=== PATIENT | female | born 1970 ===

== ENCOUNTER 2016-12-28 11:57 | Emergency (ER) | payer SELFPAY ==
[2016-12-28 12:08] VITALS: BP 123/76; PULSE 72; RESP 18; TEMP 98.2; O2SAT 100
--- NOTE | 2016-12-28 13:02 | ED PDOC ---
HPI: Abdomen Time Seen by Provider: 12/28/16 13:00 Chief Complaint (Nursing): Abdominal Pain Chief Complaint (Provider): Vaginal spotting, very mild lower abdominal pain History Per: Patient History/Exam Limitations: no limitations Onset/Duration Of Symptoms: Mins Outside of [place] travel?: No Current Symptoms Are (Timing): Better Pain Scale Rating Of: 0 Location Of Pain/Discomfort: Suprapubic Quality Of Discomfort: Burning Associated Symptoms: Nausea. denies: Fever, Chills, Vomiting, Diarrhea, Loss Of Appetite, Back Pain, Chest Pain, Urinary Symptoms Exacerbating Factors: None Alleviating Factors: None Last Bowel Movement: Yesterday Additional Complaint(s): CC: vaginal spotting HPI: 46 y/o woman w/ no PMH presents to eD w/ vaginal spotting. The patient reports that she noticed spotting while wiping after using the bathroom this morning at 11:00. The patient describes pink colored spotting, with no clots, no other discharge, and very mild burning intermittent lower abdominal pain. The patient reports associated nasuea but denies episodes of vomit. The patient is seen at the [facility] for care and was seen yesterday, has thus far been normal. The patient reports taking vitamins and no other medications. The patietn denies headaches, dizziness, chest pain, SOB, diarrhea, dysuria, and fevers. PMD: [facility] ([place]) PMH: none PSH: none SOC: denies smoking, alcohol, and drugs ROS: negative for 12 points assessed unless otherwise reported in HPI Abnormal Vaginal Bleeding: Yes Last Menstral Period: 09/22/2016 : 5 Para: 3 Miscarriage: 1 Past Medical History Vital Signs: Last Vital Signs Temp 98.2 F 12/28/16 12:05 Pulse 72 12/28/16 12:05 Resp 18 12/28/16 12:05 BP 123/76 12/28/16 12:05 Pulse Ox 100 12/28/16 16:45 - Surgical History Surgical History: No Surg Hx - Family History Family History: States: Unknown Family Hx - Allergies Allergies/Adverse Reactions: Allergies Allergy/AdvReac Type Severity Reaction Status Date / Time No Known Allergies Allergy Verified 12/28/16 12:04 Review of Systems ROS Statement: Except As Marked, All Systems Reviewed And Found Negative Constitutional: Negative for: Fever, Chills, Sweats Eyes: Negative for: Vision Change Cardiovascular: Negative for: Chest Pain, Palpitations, Light Headedness Respiratory: Negative for: Cough, Shortness of Breath, Hemoptysis, SOB with Exertion, Wheezing Gastrointestinal: Positive for: Nausea, Abdominal Pain. Negative for: Vomiting , Diarrhea, Melena, Hematochezia Genitourinary Female: Negative for: Dysuria, Hematuria Neurological: Negative for: Weakness, Headache, Dizziness Physical Exam - Reviewed Nursing Documentation Reviewed: Yes Vital Signs Reviewed: Yes - Physical Exam Appears: Positive for: No Acute Distress Head Exam: Positive for: ATRAUMATIC, NORMOCEPHALIC Skin: Positive for: Normal Color, Warm, Dry Eye Exam: Positive for: Normal appearance, EOMI, PERRL Neck: Positive for: Painless ROM, Supple Cardiovascular/Chest: Positive for: Regular Rate, Rhythm, Chest Non Tender. Negative for: Bradycardia, Tachycardia Respiratory: Positive for: Normal Breath Sounds. Negative for: Decreased Breath Sounds, Accessory Muscle Use, Crackles, Rales, Rhonchi, Stridor, Wheezing , Respiratory Distress Pulses-Carotid (L): 2+ Pulses-Carotid (R): 2+ Pulses-Dorsalis Pedis (L): 2+ Pulses-Dorsalis Pedis (R): 2+ Pulses-Post. Tibialis (L): 2+ Pulses-Post. Tibialis (R): 2+ Pulses-Radial (L): 2+ Pulses-Radial (R): 2+ Pelvic Exam: Positive for: External Exam Normal, No Cerv. Motion Tender, No Masses, Blood, Lesions (patient reports no abnormal Pap in past), Other ( child care group leader present during exam). Negative for: Active Bleeding, Cervicitis, Discharge, Mass, Tender W/Cervical Motion, Tender Adnexa, Tender Uterus Back: Positive for: Normal Inspection Extremity: Negative for: Tenderness, Pedal Edema, Calf Tenderness Neurologic/Psych: Positive for: Alert, Oriented. Negative for: Motor/Sensory Deficits - Laboratory Results Result Diagrams: 12/28/16 13:00 12/28/16 13:00 - ECG O2 Sat by Pulse Oximetry: 100 Medical Decision Making Medical Decision Makin46 y/o woman w/ no PMH presents to eD w/ vaginal spotting CBC w/ diff: slight anemia Hb 11.6 CMP: mild elevated ALT 53, BP 123/76 mm Hg [facility] obstetric U/S: single viable IUP @ 14.6 weeks re-evaluated patient feels better Dispo: discharge to home, counseled to follow up w/ clinic and scheduled echo tomorrow Disposition - Clinical Impression Clinical Impression: Threatened miscarriage - Patient ED Disposition Is Patient to be Admitted: No Discussed With : Osman Canales Counseled Patient/Family Regarding: Studies Performed, Diagnosis, Need For Followup - Disposition Referrals: [facility] [Outside] Disposition: Routine/Home Disposition Time: 17:38 Condition: FAIR Instructions: Threatened Miscarriage (ED) Print Language: AZERI - POA Present On Arrival: None
[2016-12-28 13:47] LABS: BASO % 0.6 % (0.0-2.0); EOS % 0.4 % (0.0-4.0); HEMOGLOBIN 11.6 g/dL (12.0-16.0); LYMPH # 1.9 K/uL (1.0-4.3); LYMPH % 24.6 % (20.0-40.0); MEAN CELL VOLUME 92.1 fl (81.0-99.0); MEAN CORPUSCULAR HEMOGLOBIN 31.2 pg (27.0-31.0); MEAN CORPUSCULAR HGB CONC 33.9 g/dL (33.0-37.0); MEAN PLATELET VOLUME 10.1 fl (7.2-11.7); MONO # 0.5 K/uL (0.0-0.8); NEUT # 5.3 K/uL (1.8-7.0); NEUT % 67.4 % (50.0-75.0); RBC 3.71 Mil/uL (3.80-5.20); RED CELL DISTRIBUTION WIDTH 14.3 % (11.5-14.5); WHITE BLOOD COUNT 7.8 K/uL (4.8-10.8)
[2016-12-28 13:53] LABS: ALB/GLOB RATIO 1.1 (1.0-2.1); ALBUMIN 3.9 g/dL (3.5-5.0); ALT/SGPT 53 U/L (9-52); AST/SGOT 33 U/L (14-36); BLOOD UREA NITROGEN 12 mg/dl (7-17); CALCIUM 9.6 mg/dL (8.4-10.2); GFR AFRICAN-AMERICAN > 60; GFR NON-AFRICAN AMERICAN > 60
--- NOTE | 2016-12-28 16:19 | US ---
PROCEDURE: OB Pelvic Ultrasound HISTORY: r/o ectopic COMPARISON: None available. FINDINGS: UTERUS: Gestational sac: There is a single live intrauterine fetus in variable presentation. . Heart rate: 147 bpm. BPD: 2.74 cm corresponding to 14 weeks and 6 days of gestational age. HC: 10.08 cm corresponding to 14 weeks and 5 days of gestational age. AC: 8.50 cm corresponding to 14 weeks and 6 days of gestational age. FL: 1.58 cm corresponding to 14 weeks and 5 days of gestational age. age (Ultrasound estimated): 14 weeks and 6 days. Cande-gestational hemorrhage: None. Date of delivery (Ultrasound estimated) : 06/22/2017 Placenta is anterior. CERVIX: Long and closed. No cervical abnormality seen. RIGHT OVARY: Not visualized. LEFT OVARY: Not visualized. FREE FLUID: None. OTHER FINDINGS: None. IMPRESSION: Single live intrauterine fetus in variable presentation with mean gestational age of 14 weeks and 6 days. Estimated date of delivery by ultrasound is 06/22/2017. There is a discrepancy with the clinical dates by 20 days. Clinical correlation and follow-up is advised.
== END 2016-12-28 17:35 | disposition home or self-care (01) ==
LOC: H.ER 11:57
DX: O20.0 Threatened abortion (principal); Z3A.14 14 weeks gestation of pregnancy

== ENCOUNTER 2017-06-18 05:23 | Inpatient (IN) | payer MEDICAID, SELFPAY ==
[2017-06-18 05:56] VITALS: BMI 30.5
[2017-06-18 06:39] LABS: BASO % 0.2 % (0.0-2.0); EOS % 0.2 % (0.0-4.0); HEMOGLOBIN 11.3 g/dL (12.0-16.0); LYMPH # 2.7 K/uL (1.0-4.3); LYMPH % 34.9 % (20.0-40.0); MEAN CELL VOLUME 89.4 fl (81.0-99.0); MEAN CORPUSCULAR HGB CONC 34.6 g/dL (33.0-37.0); MEAN PLATELET VOLUME 11.2 fl (7.2-11.7); MONO # 0.6 K/uL (0.0-0.8); MONO % 7.2 % (0.0-10.0); NEUT # 4.4 K/uL (1.8-7.0); NEUT % 57.5 % (50.0-75.0); NRBC % 0.1 % (0.0-0.0); RBC 3.64 Mil/uL (3.80-5.20); RED CELL DISTRIBUTION WIDTH 14.9 % (11.5-14.5); WHITE BLOOD COUNT 7.7 K/uL (4.8-10.8)
[2017-06-18] MEDS: Oxytocin 30 UNITS in Sodium Chloride 0.9% 500 ML IV SCH ×4 (06:40→09:24)
[2017-06-18] MEDS ORDERED: Lidocaine 1% Inj (20ml) ONE (06:53)
--- NOTE | 2017-06-18 07:28 | OBDS ---
DELIVERY PERSONNEL Delivery Doctor: Cedric Amador MD Resident: Dr. Michaud PGY-1 MATERNAL INFORMATION Provider Comments: Pt progressed to complete and pushed to deliver a viable female through clear flu id at 06:43 am w/ a tight nuchal cord. Apgars 9 and 9. Wt 3480 gms. 7#10.8. Cord clamped and cut. placed on mother's abdomen. Cord blod collected. Placenta delivered spontaneously intact w/ a 3vc at 06:47 am. Bimanual massage performed for bleeding. 0-v stitches placed to reinforce the r ectal sphincter. Second degree tear repaired w/ 2-0 rapide and 3-0v. Rectum intact. Pt and baby to lerated the procedure well. EBL 350 mL. LABOR SUMMARY EDC: 06/23/2017 00:00 No. Babies in Womb: 1 Attempted: No Labor Anesthesia: None LABOR INFORMATION Reason for Induction: Not Applicable Onset of Labor: 06/18/2017 04:25 Oxytocin: N/A Group B Beta Strep: Negative Steroids Given: None Reason Steroids Not Administered: Not Applicable MEMBRANES Membranes Rupture Method: Spontaneous Amniotic Fluid Color: Clear Amniotic Fluid Amount: Moderate Amniotic Fluid Odor: Normal
--- NOTE | 2017-06-18 07:31 | OBHP ---
Datetime: 06/18/2017 05:30 IP Adm Impression: Term, intrauterine IP Admit Plan: Admit to unit Admit Comment, IP Provider: CHIEF COMPLAINT: LOF CTX HPI: 46 yo at 39.2 wks GA with EDC by us ...+ ROM, FM, CTX She shares that 12 hours ago she had diffuse loss of fluid with contractions every 5 minutes. last U/S? 06/04/2017 last visit 06/04/2017 GBS negative PNC: Dr. Terrell PAST OB HX: x 3 no complications PAST [employer] HX: negativeSTIs, PMHX: none PFHX: none PAST SX HX: none SOCIAL HX: denies: smoking, alcohol, illicit drugs MEDICATION: PNV ALLERGIES: NKDA PE: General: pleasant, in no acute distress HEENT: normocephalic, PERRLA; AAOx3 Heart: no murmurs, regular rate and rhythm, S1, S2 normal. Lungs: clear to auscultation bilaterally, no wheezing Abdomen: nontender, gravid SSE/PELVIC EXN: MONITOR: Variablity: moderate: 6-25 bpm ACC: 15x15 DECC: none FHR: 120 ASSESSMENT: 46 yo IUP at 39.2 wks admitted for progression of labor PLAN:cbc, t_s, hiv, rpr, Case d/w Dr. enrique Michaud MD Family Medicine, PGY1 OB Hospitalist Addendum: Pt seen and examined by me. Agree w/ above. 46 yo at 39+2 wks i n pain since 05:25 am, c/o LOF at 05:25 am. Pt reports FM. VE 9 cm on admission. GBS negative. FH T reactive. Pt admitted to L_D. (ES) Pelvic Type - PN: Adequate Extremities - PN: Normal Abdomen - PN: Normal Back - PN: Normal Breast - PN: Not Done Lungs - PN: Normal Heart - PN: Normal Thyroid - PN: Not Done Neurologic - PN: Normal HEENT - PN: Normal General - PN: Normal FHR - Baseline A Provider: 120 Contraction Comments Provider: 5 EGA AdmitDate IP: 39.2 IP Chief Complaint: Uterine contractions; Suspected ruptured membranes NICHD Variability Prov Fetus A: Moderate 6-25bpm NICHD Accel Fetus A IP Provider: 15X15 FHR Category Provider Fetus A: Category I Dilatation, Provider: 9 Effacement, Provider: 100 Station, Provider: -1 Genitourinary Exam: Normal DTRs - PN: Not Done
[2017-06-19 07:20] LABS: HEMOGLOBIN 9.1 g/dL (12.0-16.0); MEAN CELL VOLUME 89.4 fl (81.0-99.0); MEAN CORPUSCULAR HEMOGLOBIN 30.7 pg (27.0-31.0); MEAN CORPUSCULAR HGB CONC 34.3 g/dL (33.0-37.0); RBC 2.97 Mil/uL (3.80-5.20); RED CELL DISTRIBUTION WIDTH 15.1 % (11.5-14.5); WHITE BLOOD COUNT 8.9 K/uL (4.8-10.8)
--- NOTE | 2017-06-19 11:58 | OBPPN ---
Datetime: 06/19/2017 07:50 PP Pain Prov: Within normal limits PP Nausea Prov: Denies PP Flatus Prov: Yes PP BM Prov: Yes PP Breasts Prov: Not Done PP Heart Prov: Normal PP Lungs Prov: Normal PP Abdomen/Uterus Prov: Normal PP Lochia Prov: Normal PP Vulva/Perineum Prov: Not Done PP CVA Tenderness Prov: Normal PP Extremities Prov: Normal PP C/S Incision Prov: Not Applicable PP Progress Prov: Normal PP Impression Prov: Normal progression PP Plan Prov: Continue present management PP Progress Note Prov: PPD 1 S: 46 yo s/p NVD on 06/18/17 at 06:15. Pt. is seen and examined at bedside this AM. No ov ernight events. Pt reports occasional abdominal pain, but well controlled with pain meds. Pt is ambul ating without any difficulties. Breast feeding baby. Tolerating PO diet. Lochia is similar to light m enses in volume. Voiding freely, bowel movement, and passing gas per rectum. Denies fever, chills, di arrhea, nausea, vomiting, chest pain, dyspnea, and dizziness. O: VS: stable GEN: NAD Cardio: S1S2, no M/G/R Resp: clear breath sounds b/l Abdomen: BS+, NT, Uterus is firm and at the level of the umbilicus. EXT: No edema, calves nontender NEURO/PSYCHI: AAOx3, no grossly focal deficit, preserved affect and mood. Assessment/Plan: 46 yo s/p NVD on 06/18/17 at 06:15. Pt remains afebrile, tolerating pain with medication, tolerating PO intake, doing well on PPD1. OOB with caution SCDs for DVT prophylaxis, pt ambulating Ibuprofen 600mg for pain. Colace 100mg PO BID/Senokot 17.2 mg qHS for constipation Encourage and ambulating F/u CBC post-delivery: pending Anticipated d/c to home,06/20/17. --- Adonay Michaud MD PGY-1 The patient was seen with the resident and I agree with the notes IP PP Procedures: None Vital Signs Provider PP: Reviewed; Within Normal Limits
[2017-06-20 17:22] VITALS: BP 111/67; PULSE 69; RESP 19; TEMP 97.4; O2SAT 99
== END 2017-06-20 13:05 | disposition home or self-care (01) | DRG 775 ==
LOC: H.EROB2 05:23 → H.L&D 05:56 → H.OB/GYN 09:25
PROVIDERS: ADMIT Obstetrics & Gynecology; ATTEND Obstetrics & Gynecology
PROC: 10E0XZZ Delivery of Products of Conception, External Approach (ICD-10-PCS; principal; 2017-06-18)
PROC: 0KQM0ZZ Repair Perineum Muscle, Open Approach (ICD-10-PCS; 2017-06-18)
PROC: 4A1HXCZ Monitoring of Products of Conception, Cardiac Rate, External Approach (ICD-10-PCS; 2017-06-18)
DX: O69.1XX0 Labor and delivery complicated by cord around neck, with compression, not applicable or unspecified (principal); O70.1 Second degree perineal laceration during delivery; O09.523 Supervision of elderly multigravida, third trimester; Z37.0 Single live birth; Z3A.39 39 weeks gestation of pregnancy